=== PATIENT | female | born 1990 | race Caucasian/White ===

== ENCOUNTER 2017-12-07 22:22 | Observation (INO) ==
[2017-12-07 23:08] LABS: BASOPHILS % (AUTO) 0.4 % (0.2-1.0); EOSINOPHILS # (AUTO) 0.2 x10^3/uL (0.0-0.2); EOSINOPHILS % (AUTO) 2.5 % (0.9-2.9); HEMATOCRIT 39.1 % (36.0-47.0); HEMOGLOBIN 13.2 g/dL (12.0-16.0); LYMPHOCYTES # (AUTO) 2.4 X10^3/uL (1.3-2.9); LYMPHOCYTES % (AUTO) 29.1 % (21.0-51.0); MEAN CORPUSCULAR HEMOGLOBIN 29.2 pg (27.0-34.0); MEAN CORPUSCULAR HGB CONC 33.7 g/dL (33.0-35.0); MEAN CORPUSCULAR VOLUME 86.5 fL (80.0-100.0); MEAN PLATELET VOLUME 8.5 fL (7.4-11.0); MONOCYTES # (AUTO) 0.6 x10^3/uL (0.3-0.8); MONOCYTES % (AUTO) 6.8 % (0.0-13.0); NEUTROPHILS # (AUTO) 5.1 x10^3/uL (2.2-4.8); NEUTROPHILS % (AUTO) 61.2 % (42.0-75.0); PLATELET COUNT 286 X10^3/uL (150.0-450.0); RED BLOOD COUNT 4.52 X10^6/uL (3.5-5.4); RED CELL DISTRIBUTION WIDTH 12.7 % (11.6-16.5); WHITE BLOOD COUNT 8.4 X10^3/uL (3.6-10.0)
--- NOTE | 2017-12-07 23:10 | DR.GENAD ---
HPI - PCP Primary Care Physician: NFD - HPI Comment HPI Comment: WORSE TONIGHT. NO N/V/D OR CONSTIPATION. NO FEVER OR DYSURIA. - Complaint/Symptoms Chief Complaint Doctors Comments: RLQ ABDOMINAL PAIN TIMES 2 DAYS. Chief Complaint:: PT C/O RT LOWER QUAD PAIN FOR 2 DAYS - Nurses notes reviewed Nurses Notes Review: Yes - Source History Provided: Patient - Mode of Arrival Mode of Arrival: Ambulatory - Timing Onset of Chief Complaint: 12/05/17 Came on: Suddenly - Duration Duration: Constant Duration: Days - Severity Severity: Moderate PMH - PMH Past Medical History: No Past Surgical History: No - Family History History of Family Medical Conditions: Yes Family Medical History: Hypertension - Social History Alcohol Use: None Do you use any recreational Drugs:: No Lives With: Family Lives Where: Home - infectious screening In the last 2 months have you had wt loss of >10#?: NO Have you had fever, night sweats or hemotysis?: No Have you traveled outside the country in the last 6 months?: No Isolation: Standard ROS - Review of Systems Constitutional: No Symptoms Reported Eyes: No Symptoms Reported ENTM: No Symptoms Reported Respiratoy: No Symptoms Reported Cardiovascular: No Symptoms Reported Gastrointestinal/Abdominal: Abdominal Pain (RLQ ABDOMINAL PAIN.) Genitourinary: No Symptoms Reported Neurological: No Symptoms Reported Musculoskeletal: No Symptoms Reported Integumentary: No Symptoms Reported Hematologic/Lymphatic: No Symptoms Reported Endocrine: No Symptoms Reported All Other Systems: Reviewed and Negative PE - General Limitations: No Limitations General Appearance: Alert - Head Head Exam: Normal Inspection - Eyes Eye exam: Normal Appearance - ENT ENT Exam: Normal External Ear Exam External Ear Exam: Normal External Inspection TM/Canal Exam: Bilateral Normal Nose Exam: Normal Nose Exam Mouth Exam: Normal Inspection Throat Exam: Normal Inspection - Neck Neck Exam: Trachea Midline - Chest Chest Inspection: Symmetric Chest Wall Rise - Respiratory Respiratory Exam: Normal Lung Sounds Bilat Respiratory Exam: Bilateral Clear to Auscultation - Cardiovascular Cardiovascular Exam: Regular Rate, Normal Rhythm, Normal Heart Sounds - Abdominal Exam Abdominal Exam: Normal Bowel Sounds, Soft, Tenderness Abdominal Tenderness: RLQ, Moderate - Extremities Extremities Exam: Normal Inspection - Back Back Exam: Normal Inspection - Neurologic Neurological Exam: Alert, Oriented X3, CN II-XII Intact. negative: Motor Sensory Deficit - Psychiatric Psychiatric Exam: Normal Affect, Normal Mood - Skin Skin Exam: Normal Color - Vital Signs Vitals: Temperature 98.1 F Pulse Rate 92 Respiratory Rate 18 Blood Pressure 112/77 O2 Sat by Pulse Oximetry 100 MDM - Additional Information Additional Information Obtained From: Family - Differential Diagnosis Differential Diagnosis: RLQ ABDOMINAL PAIN, APPENDICITIS Course - Treatment Treatment: SEE ORDERS. - Consultation Consultation Comments: DISCUSS PATIENT WITH DR. SUNG. WILL TAKE TO SURGERY IN AM. PATIENT WILL BE ADMITTED TO DR. TRIPATHI SERVICE. - Education/Counseling Education/Counseling: Patient, Family, Education Educated On: Diagnosis ROR - Labs Reviewed Laboratory Results Reviewed?: Yes Result Diagrams: 12/07/17 22:56 12/08/17 07:12 - XRAY XRAY Interpreted by: Radiologist XRAY Findings: REPORT DISCUSS WITH PATIENT. - Labs Reviewed Laboratory: WBC 8.4 X10^3/uL (3.6-10.0) 12/07/17 22:56 RBC 4.52 X10^6/uL (3.5-5.4) 12/07/17 22:56 Hgb 13.2 g/dL (12.0-16.0) 12/07/17 22:56 Hct 39.1 % (36.0-47.0) 12/07/17 22:56 MCV 86.5 fL (80.0-100.0) 12/07/17 22:56 MCH 29.2 pg (27.0-34.0) 12/07/17 22:56 MCHC 33.7 g/dL (33.0-35.0) 12/07/17 22:56 RDW 12.7 % (11.6-16.5) 12/07/17 22:56 Plt Count 286 X10^3/uL (150.0-450.0) 12/07/17 22:56 MPV 8.5 fL (7.4-11.0) 12/07/17 22:56 Neut % (Auto) 61.2 % (42.0-75.0) 12/07/17 22:56 Lymph % (Auto) 29.1 % (21.0-51.0) 12/07/17 22:56 [place] % (Auto) 6.8 % (0.0-13.0) 12/07/17 22:56 Eos % (Auto) 2.5 % (0.9-2.9) 12/07/17 22:56 Baso % (Auto) 0.4 % (0.2-1.0) 12/07/17 22:56 Neut # (Auto) 5.1 x10^3/uL (2.2-4.8) H 12/07/17 22:56 Lymph # (Auto) 2.4 X10^3/uL (1.3-2.9) 12/07/17 22:56 [place] # (Auto) 0.6 x10^3/uL (0.3-0.8) 12/07/17 22:56 Eos # (Auto) 0.2 x10^3/uL (0.0-0.2) 12/07/17 22:56 Baso # (Auto) 0.0 X10^3/uL (0.0-0.1) 12/07/17 22:56 Absolute Nucleated RBC 0.0 /100WBC 12/07/17 22:56 Sodium 136 mmol/L (136-145) 12/07/17 22:56 Corrected Sodium TNP 12/07/17 22:56 Potassium 3.1 mmol/L (3.5-5.1) L 12/07/17 22:56 Chloride 101 mmol/L (98-107) 12/07/17 22:56 Carbon Dioxide 31.0 mmol/L (21-32) 12/07/17 22:56 BUN 5 mg/dL (7-18) L 12/07/17 22:56 Creatinine 0.69 mg/dL (0.55-1.02) 12/07/17 22:56 Est GFR (MDRD) Af Amer > 60 (>60) 12/07/17 22:56 Est GFR (MDRD) Non-Af > 60 (>60) 12/07/17 22:56 Glucose 78 mg/dL (65-99) 12/07/17 22:56 Calcium 8.6 mg/dL (8.5-10.1) 12/07/17 22:56 Corrected Calcium TNP 12/07/17 22:56 Total Bilirubin 0.20 mg/dL (0.2-1.0) 12/07/17 22:56 AST 10 Units/L (15-37) L 12/07/17 22:56 ALT 12 Units/L (12-78) 12/07/17 22:56 Alkaline Phosphatase 73 Units/L (46-116) 12/07/17 22:56 Total Protein 7.0 g/dL (6.4-8.2) 12/07/17 22:56 Albumin 3.4 g/dL (3.4-5.0) 12/07/17 22:56 Globulin 3.6 g/dL (2.5-4.5) 12/07/17 22:56 Albumin/Globulin Ratio 0.9 Ratio (1.1-2.1) L 12/07/17 22:56 HCG, Qual Negative <10 mIU/mL 12/07/17 22:56 Specimen Type Clean catch urine 12/07/17 22:55 Urine Color Pale yellow (YELLOW) 12/07/17 22:55 Urine Appearance Clear (CLEAR) 12/07/17 22:55 Urine pH 6.5 (5.0 - 8.0) 12/07/17 22:55 Ur Specific [place] 1.010 (1.000-1.030) 12/07/17 22:55 Urine Protein Negative (NEGATIVE) 12/07/17 22:55 Urine Glucose (UA) Negative (NEGATIVE) 12/07/17 22:55 Urine Ketones Negative (NEGATIVE) 12/07/17 22:55 Urine Occult Blood 1+ (NEGATIVE) 12/07/17 22:55 Urine Nitrite Negative (NEGATIVE) 12/07/17 22:55 Urine Bilirubin Negative (NEGATIVE) 12/07/17 22:55 Urine Urobilinogen Normal (NORMAL) 12/07/17 22:55 Ur Leukocyte Esterase Negative (NEGATIVE) 12/07/17 22:55 Urine RBC 0-2 /HPF (NONE SEEN) 12/07/17 22:55 Urine WBC None seen /HPF (NONE SEEN) 12/07/17 22:55 Ur Squamous Epith Cells Few /HPF (NEGATIVE) 12/07/17 22:55 Urine Bacteria Negative /HPF (NEGATIVE) 12/07/17 22:55 Ur Culture Indicated? No/not indicated 12/07/17 22:55 - Diagnosis Discharge Problem: Acute appendicitis Qualifiers: Acute appendicitis type: with localized peritonitis Qualified Code(s): K35.3 - Acute appendicitis with localized peritonitis - Discharge Plan Disposition: ADMITTED INPATIENT Condition: Stable
[2017-12-07 23:12] LABS: BILIRUBIN,URINE NEGATIVE (NEGATIVE); BLOOD/HEMOGLOBIN,URINE 1+ (NEGATIVE); GLUCOSE, URINE NEGATIVE (NEGATIVE); KETONES,URINE NEGATIVE (NEGATIVE); LEUKOCYTE ESTERASE ,URINE NEGATIVE (NEGATIVE); NITRITES,URINE NEGATIVE (NEGATIVE); PH,URINE 6.5 (5.0 - 8.0); PROTEIN,URINE NEGATIVE (NEGATIVE); UROBILINOGEN,URINE NORMAL (NORMAL)
[2017-12-07 23:15] LABS: SERUM PREGNANCY TEST, QUAL NEGATIVE <10 mIU/mL
[2017-12-07 23:19] LABS: ALANINE AMINOTRANSFERASE 12 Units/L (12-78); ALBUMIN 3.4 g/dL (3.4-5.0); ALKALINE PHOSPHATASE 73 Units/L (46-116); ASPARTATE AMINO TRANSFERASE 10 Units/L (15-37); BLOOD UREA NITROGEN 5 mg/dL (7-18); CALCIUM 8.6 mg/dL (8.5-10.1); CHLORIDE 101 mmol/L (98-107); CREATININE 0.69 mg/dL (0.55-1.02); SODIUM 136 mmol/L (136-145); eGFR NON BLACK RACES > 60 (>60)
[2017-12-07 23:25] LABS: APPEARANCE,URINE CLEAR (CLEAR); COLOR,URINE PALE YELLOW (YELLOW)
[2017-12-07 23:26] LABS: BACTERIA,URINE NEGATIVE /HPF (NEGATIVE); RBC,URINE 0-2 /HPF (NONE SEEN); SQUAMOUS EPITHELIAL CELL,UR FEW /HPF (NEGATIVE)
--- NOTE | 2017-12-08 00:19 | CT ---
CT abdomen pelvis without contrast Indication: Abdominal pain Findings: The cardiac chambers and lung bases are negative. The noncontrast appearance of liver gallb ladder pancreas spleen and bilateral kidneys are negative. The small bowel shows minimal fluid retent ion and luminal stasis nonspecific in appearance. A mild ileus related to enteritis is not excluded. The colon retains [id number] stool consistent with mild constipation. In the right lower quadrant in the retrocecal location the appendix is present and appears to be mild ly dilated is partially dislocated tip with there is. Appendiceal stranding. The lumen measurement in this location is approximately 11 mm. There is an intrauterine device present. The urinary bladder is nondistended. The skeleton is negati ve. Impression: 1 findings of acute appendicitis without abscess or perforation is located in a retroceca l position of the right lower quadrant. 2. IUD visualized. 3. Mild small bowel ileus with luminal stasis. Reported By:
[2017-12-08] MEDS ORDERED: ZOFRAN INJ 4 MG VIAL IVP PRN ×2 (01:26→09:37)
[2017-12-08] MEDS ORDERED: ANCEF 1 GRAM IV PREMIX* 1 G/50 ML BAG IV ONE ×2 (01:54→08:17)
[2017-12-08] MEDS ORDERED: NS 1000 ML 1,000 ML IV SCH (02:00)
[2017-12-08] MEDS: NS + KCL 20 MEQ/L 1,000 ML IV SCH ×2 (02:00→14:17)
[2017-12-08] MEDS: ANCEF VIAL 1 GRAM 1 G in NS 100 ML IV + SPIKE MINIBAG* 100 ML IV SCH ×4 (02:00→22:10)
[2017-12-08 02:11] VITALS: BMI 21.7
[2017-12-08] MEDS: MORPHINE SULFATE INJ 2 MG INJ IVP PRN ×2 (02:22→15:38)
[2017-12-08] MEDS ORDERED: NS 100 ML IV 100 ML IV ONE (05:23)
[2017-12-08] MEDS ORDERED: ANCEF VIAL 1 GRAM ONE (05:24)
[2017-12-08 07:25] LABS: MAGNESIUM 1.8 mg/dL (1.7-2.9)
[2017-12-08] MEDS ORDERED: LR 1000 ML IV 1,000 ML IV ONE ×2 (08:16→08:29)
[2017-12-08] MEDS ORDERED: MORPHINE SULFATE INJ 2 MG INJ ONE (08:20)
[2017-12-08] MEDS ORDERED: BACITRACIN VIAL ONE (08:23)
[2017-12-08] MEDS ORDERED: CITALOPRAM PO SCH (09:00)
[2017-12-08] MEDS ORDERED: NS IRRIGATION 3000 ML 3,000 ML IR ONE (09:31)
[2017-12-08] MEDS ORDERED: REGLAN INJ 10 MG VIAL IVP PRN (09:37)
[2017-12-08] MEDS ORDERED: DILAUDID INJ IVP PRN (09:37)
[2017-12-08] MEDS ORDERED: BENADRYL INJ 50 MG VIAL IVP PRN (09:37)
[2017-12-08] MEDS ORDERED: PHENERGAN INJ 25 MG IVP PRN (09:37)
[2017-12-08] MEDS ORDERED: PHENERGAN INJ 25 MG ONE (09:40)
[2017-12-08] MEDS: PHENERGAN INJ 25 MG IVP PRN ×2 (09:41→21:58)
--- NOTE | 2017-12-08 09:43 | OR.GENERIC ---
Post-Op Note Generic - Post-Op Note Operative Report: lap appendectomy was done .. findings : acute retro cecal appendecitis .. 2- small Rt ovarian cyst . EBL 10 cc.. pt did well , no complications ..
[2017-12-08] MEDS: D5 1/2 NS 1000 ML 1,000 ML IV SCH (10:49)
[2017-12-08] MEDS: LEVAQUIN PREMIX IV 500 MG 500 MG/100 ML BAG IV SCH (11:40)
[2017-12-08] MEDS: CELEXA PO SCH ×2 (11:40→15:38)
[2017-12-08] MEDS ORDERED: TORADOL 30 MG VIAL ONE (15:35)
[2017-12-08] MEDS ORDERED: ULTANE GAS IN ONE (15:35)
[2017-12-08] MEDS ORDERED: DIPRIVAN VIAL ONE (15:35)
[2017-12-08] MEDS ORDERED: NORCURON INJ 10 MG VIAL ONE (15:35)
[2017-12-08] MEDS ORDERED: ZOFRAN INJ 4 MG VIAL ONE (15:35)
[2017-12-08] MEDS ORDERED: ROBINUL ONE (15:35)
[2017-12-08] MEDS ORDERED: NEOSTIGMINE INJ ONE (15:35)
[2017-12-08] MEDS ORDERED: QUELICIN (OR ANECTINE) ONE (15:35)
[2017-12-08] MEDS ORDERED: VERSED ONE (15:35)
[2017-12-08] MEDS ORDERED: NORCO 5/325 MG TAB PO PRN (16:45)
--- NOTE | 2017-12-08 22:01 | DR.H&P ---
H&P - History & Physical for Day of: H&P Date: 12/08/17 - Chief Complaint Chief Complaint: ABDOMINAL PAIN - History of Present Illness History of Present Illness: IS A 26 YEAR OLD WHITE FEMALE WHO PRESENTED TO THE EMERGENCY ROOM WITH COMPLAINTS OF RIGHT LOWER QUADRANT PAIN FOR THE PAST TWO DAYS. SHE DENIES NAUSEA, VOMITING, OR CONSTIPATION. SHE ALSO DENIES FEVER OR DYSURIA. ON ARRIVAL, VITALS WERE 98.1-92-18-100%-112/77. LABS WERE OBTAINED. ABNORMAL LAB VALUES INCLUDE THE FOLLOWING: POTASSIUM 3.1, BUN 5, AST 10. URINALYSIS IS UNREMARKABLE. ABDOMEN/PELVIS CT OBTAINED AND REVEALED: findings of acute appendicitis without abscess or perforation is located in a retrocecal position of the right lower quadrant. IUD visualized. Mild small bowel ileus with luminal stasis. WAS CONSULTED AND PLANS FOR LAPROSCOPIC APPENDECTOMY THIS MORNING. WE ARE IN AGREEMENT WITH PLAN AND PATIENT IS MEDICALLY CLEAR FOR SURGERY. SHE WAS ADMITTED TO THE HOSPITAL AND STARTED ON NS+20MEQ KCL AT 100ML/HR, ANCEF 1GM IV Q8H, AND LEVAQUIN 500MG IV DAILY. WE WILL FOLLOW UP WITH AM LABS AND CONTINUE TO MONITOR PATIENT AFTER SURGERY. - Past Medical History Past Medical History: Depression - Past Surgical History Surgical History: No History - Family History Family Medical History: Hypertension - Social History Alcohol Use: None Drug Use: None - Medications Home Medications: Sulfa (Sulfonamide Antibiotics) [SULFA] Allergy (Verified 12/07/17 22:27) CONTINUE taking the following medications citalopram [Celexa] 1 tab PO DAILY 12/08/17 [History] - Review of Systems Constitutional: No Symptoms Reported Eyes: No Symptoms Reported ENT: No Symptoms Reported Respiratory: No Symptoms Reported Cardiovascular: No Symptoms Reported Gastrointestinal: Abdominal Pain Genitourinary: No Symptoms Reported Musculoskeletal: No Symptoms Reported Skin: No Symptoms Reported Neurological: No Symptoms Reported - Physical Exam Vital Signs: Temperature 98.0 F Pulse Rate [Left Brachial] 72 Pulse Rate 74 Respiratory Rate 18 Blood Pressure [Left Arm] 101/60 Blood Pressure 118/68 O2 Sat by Pulse Oximetry 98 Oriented: Normal Eyes: Normal Ear: Normal Nose: Normal Throat: Normal Respiratory: Clear Throughout Cardiovascular: Normal : Normal Auscultation: Bowel Sounds: Normal Palpation: Normal Tenderness: RLQ Skin: Normal Musculoskeletal: Normal Psychiatric: Normal Mood Description: Calm Affect: Normal Speech Pattern: Clear - Assessment/Plan (1) Acute appendicitis Qualifiers: Acute appendicitis type: with localized peritonitis Qualified Code(s): K35.3 - Acute appendicitis with localized peritonitis Status: Acute Plan: LAPROSCOPIC APPENDECTOMY TODAY, IV ANTIBIOTICS, CONTINUE TO MONITOR - Allergies Allergies/Adverse Reactions: Allergies Allergy/AdvReac Type Severity Reaction Status Date / Time Sulfa (Sulfonamide Allergy Verified 12/07/17 22:27 Antibiotics) [SULFA]
[2017-12-09] MEDS: D5 1/2 NS 1000 ML 1,000 ML IV SCH ×3 (00:40→09:32)
[2017-12-09] MEDS: NS + KCL 20 MEQ/L 1,000 ML IV SCH (04:22)
[2017-12-09] MEDS: ANCEF VIAL 1 GRAM 1 G in NS 100 ML IV + SPIKE MINIBAG* 100 ML IV SCH ×2 (05:23→13:09)
[2017-12-09 06:37] LABS: BASOPHILS % (AUTO) 0.4 % (0.2-1.0); EOSINOPHILS # (AUTO) 0.2 x10^3/uL (0.0-0.2); EOSINOPHILS % (AUTO) 2.8 % (0.9-2.9); HEMATOCRIT 35.3 % (36.0-47.0); HEMOGLOBIN 12.2 g/dL (12.0-16.0); LYMPHOCYTES # (AUTO) 2.2 X10^3/uL (1.3-2.9); LYMPHOCYTES % (AUTO) 32.3 % (21.0-51.0); MEAN CORPUSCULAR HEMOGLOBIN 29.7 pg (27.0-34.0); MEAN CORPUSCULAR HGB CONC 34.7 g/dL (33.0-35.0); MEAN CORPUSCULAR VOLUME 85.8 fL (80.0-100.0); MEAN PLATELET VOLUME 8.9 fL (7.4-11.0); MONOCYTES # (AUTO) 0.5 x10^3/uL (0.3-0.8); MONOCYTES % (AUTO) 6.8 % (0.0-13.0); NEUTROPHILS # (AUTO) 3.9 x10^3/uL (2.2-4.8); NEUTROPHILS % (AUTO) 57.7 % (42.0-75.0); PLATELET COUNT 238 X10^3/uL (150.0-450.0); RED BLOOD COUNT 4.11 X10^6/uL (3.5-5.4); RED CELL DISTRIBUTION WIDTH 12.6 % (11.6-16.5); WHITE BLOOD COUNT 6.8 X10^3/uL (3.6-10.0)
[2017-12-09 07:05] LABS: ALANINE AMINOTRANSFERASE 11 Units/L (12-78); ALBUMIN 2.7 g/dL (3.4-5.0); ALKALINE PHOSPHATASE 48 Units/L (46-116); ASPARTATE AMINO TRANSFERASE 11 Units/L (15-37); BLOOD UREA NITROGEN 4 mg/dL (7-18); CALCIUM 7.9 mg/dL (8.5-10.1); CARBON DIOXIDE 27.7 mmol/L (21-32); CHLORIDE 106 mmol/L (98-107); COR CA(FOR HYPOALB) 8.9 mg/dL (8.5-10.1); CREATININE 0.59 mg/dL (0.55-1.02); SODIUM 140 mmol/L (136-145); TOTAL PROTEIN 5.7 g/dL (6.4-8.2); eGFR NON BLACK RACES > 60 (>60)
[2017-12-09] MEDS: LEVAQUIN PREMIX IV 500 MG 500 MG/100 ML BAG IV SCH (08:52)
[2017-12-09] MEDS: CELEXA PO SCH (08:52)
--- NOTE | 2017-12-09 09:35 | DR.PROGNOT ---
Hospital Progress Notes - Progress Note for Day of: Progress Note Date: 12/09/17 - Chief Complaint Chief Complaint: PO lap Appendectomy day 1 . doin well , c/o incisional pain , no nausea or vomiting ,. afebrile . - History of Present Illness History of Present Illness: . - Past Medical Family Social History Past Med/Fam/Surg Hx: No changes since H&P Allergies: Allergies Sulfa (Sulfonamide Antibiotics) [SULFA] Allergy (Verified 12/07/17 22:27) - Review Of Systems ROS: No change since H&P - Vital Signs Vital Signs: Temperature 98.5 F Pulse Rate [Left Brachial] 69 Pulse Rate 74 Respiratory Rate 20 Blood Pressure [Left Arm] 101/66 Blood Pressure 118/68 O2 Sat by Pulse Oximetry 97 - Physical Exam Oriented: Normal Eyes: Normal Ear: Normal Nose: Normal Throat: Normal Cardiovascular: Normal : Normal GI:Auscultation: Normal GI:Palpation: Normal GI: Tenderness: Diffuse, RLQ, LLQ (generalized tenderness , BS +) Skin: Normal Musculoskeletal: Normal Psychiatric: Normal Mood Description: Calm Affect: Normal Speech Pattern: Clear - Laboratory and Diagnostics Result Diagrams: 12/09/17 05:25 12/09/17 05:25 Labs: Laboratory WBC 6.8 X10^3/uL (3.6-10.0) 12/09/17 05:25 RBC 4.11 X10^6/uL (3.5-5.4) 12/09/17 05:25 Hgb 12.2 g/dL (12.0-16.0) 12/09/17 05:25 Hct 35.3 % (36.0-47.0) L 12/09/17 05:25 MCV 85.8 fL (80.0-100.0) 12/09/17 05:25 MCH 29.7 pg (27.0-34.0) 12/09/17 05:25 MCHC 34.7 g/dL (33.0-35.0) 12/09/17 05:25 RDW 12.6 % (11.6-16.5) 12/09/17 05:25 Plt Count 238 X10^3/uL (150.0-450.0) 12/09/17 05:25 MPV 8.9 fL (7.4-11.0) 12/09/17 05:25 Neut % (Auto) 57.7 % (42.0-75.0) 12/09/17 05:25 Lymph % (Auto) 32.3 % (21.0-51.0) 12/09/17 05:25 [place] % (Auto) 6.8 % (0.0-13.0) 12/09/17 05:25 Eos % (Auto) 2.8 % (0.9-2.9) 12/09/17 05:25 Baso % (Auto) 0.4 % (0.2-1.0) 12/09/17 05:25 Neut # (Auto) 3.9 x10^3/uL (2.2-4.8) 12/09/17 05:25 Lymph # (Auto) 2.2 X10^3/uL (1.3-2.9) 12/09/17 05:25 [place] # (Auto) 0.5 x10^3/uL (0.3-0.8) 12/09/17 05:25 Eos # (Auto) 0.2 x10^3/uL (0.0-0.2) 12/09/17 05:25 Baso # (Auto) 0.0 X10^3/uL (0.0-0.1) 12/09/17 05:25 Absolute Nucleated RBC 0.0 /100WBC 12/09/17 05:25 Sodium 140 mmol/L (136-145) 12/09/17 05:25 Corrected Sodium TNP 12/09/17 05:25 Potassium 3.5 mmol/L (3.5-5.1) 12/09/17 05:25 Chloride 106 mmol/L (98-107) 12/09/17 05:25 Carbon Dioxide 27.7 mmol/L (21-32) 12/09/17 05:25 BUN 4 mg/dL (7-18) L 12/09/17 05:25 Creatinine 0.59 mg/dL (0.55-1.02) 12/09/17 05:25 Est GFR (MDRD) Af Amer > 60 (>60) 12/09/17 05:25 Est GFR (MDRD) Non-Af > 60 (>60) 12/09/17 05:25 Glucose 93 mg/dL (65-99) 12/09/17 05:25 Calcium 7.9 mg/dL (8.5-10.1) L 12/09/17 05:25 Corrected Calcium 8.9 mg/dL (8.5-10.1) 12/09/17 05:25 Magnesium 1.8 mg/dL (1.7-2.9) 12/08/17 07:12 Total Bilirubin 0.30 mg/dL (0.2-1.0) 12/09/17 05:25 AST 11 Units/L (15-37) L 12/09/17 05:25 ALT 11 Units/L (12-78) L 12/09/17 05:25 Alkaline Phosphatase 48 Units/L (46-116) 12/09/17 05:25 Total Protein 5.7 g/dL (6.4-8.2) L 12/09/17 05:25 Albumin 2.7 g/dL (3.4-5.0) L 12/09/17 05:25 Globulin 3.0 g/dL (2.5-4.5) 12/09/17 05:25 Albumin/Globulin Ratio 0.9 Ratio (1.1-2.1) L 12/09/17 05:25 HCG, Qual Negative <10 mIU/mL 12/07/17 22:56 Specimen Type Clean catch urine 12/07/17 22:55 Urine Color Pale yellow (YELLOW) 12/07/17 22:55 Urine Appearance Clear (CLEAR) 12/07/17 22:55 Urine pH 6.5 (5.0 - 8.0) 12/07/17 22:55 Ur Specific [place] 1.010 (1.000-1.030) 12/07/17 22:55 Urine Protein Negative (NEGATIVE) 12/07/17 22:55 Urine Glucose (UA) Negative (NEGATIVE) 12/07/17 22:55 Urine Ketones Negative (NEGATIVE) 12/07/17 22:55 Urine Occult Blood 1+ (NEGATIVE) 12/07/17 22:55 Urine Nitrite Negative (NEGATIVE) 12/07/17 22:55 Urine Bilirubin Negative (NEGATIVE) 12/07/17 22:55 Urine Urobilinogen Normal (NORMAL) 12/07/17 22:55 Ur Leukocyte Esterase Negative (NEGATIVE) 12/07/17 22:55 Urine RBC 0-2 /HPF (NONE SEEN) 12/07/17 22:55 Urine WBC None seen /HPF (NONE SEEN) 12/07/17 22:55 Ur Squamous Epith Cells Few /HPF (NEGATIVE) 12/07/17 22:55 Urine Bacteria Negative /HPF (NEGATIVE) 12/07/17 22:55 Ur Culture Indicated? No/not indicated 12/07/17 22:55 Tissue Pathology To follow 12/08/17 09:08 - Assessment and Plan 1: acute retrocecal appendecitis . s/p lap parth . will D/C on Cipri 500 BID and [place] 5 PRN . to follow in one week . - Problem Patient Problems: Patient Problems Acute appendicitis (Acute) K35.80
[2017-12-09 12:54] VITALS: BP 105/73
[2017-12-09] MEDS ORDERED: ZOFRAN TAB 4 MG PO ONE (14:50)
--- NOTE | 2018-01-03 14:02 | DR.CARTERD ---
- Discharge Summary for: Discharge Summary for Date of:: 12/09/17 - Admission Date Date of Admission: 12/08/17 - Admission Diagnoses Admission Diagnosis: (1) Acute appendicitis (2) RLQ abdominal pain - Discharge Date Discharge Date: 12/09/17 - Discharge Diagnoses Discharge Diagnosis: (1) Acute appendicitis (2) RLQ abdominal pain - Hospital Course Hospital Course: Ms. Vigil presented to the emergency room with reports of right lower quadrant abdominal pain. Patient reported pain started two days prior. Patient noted with rebound tenderness on palpation of right lower quadrant. Abdomen and pelvis CT reported acute appendicitis without abscess or perforation was located in a retrocecal position of the right lower quadrant. Patient admitted to the hospital and taken to surgery for a laparoscopic appendectomy under the care of Dr. Pleitez. Patient tolerated procedure well. We were consulted for medical management. Medical History: Uterine Cyst, Anxiety. Medications: Phenergan 12.5mg IV Q6hr PRN, Ancef 1gm IV Q8hr, Morphine 2mg IV Q4hr PRN, Zofran 4mg IV Q6hr PRN, NS +20meq KCL @100ml/hr, Celexa 10mg po daily, Levaquin 500mg IV daily, [place] 5/325mg po Q4hr PRN, Zofran 4mg IV x1. Abnormal Labs: Potassium 3.1, BUN 5, AST 10, A/G Ratio 0.9. Abdomen/Pelvis CT: Findings of acute appendicitis without abscess or perforation is located in a retrocecal position of the right lower quadrant. IUD visualized. Mild small bowel ileus with luminal stasis. On day two, patient was doing well. Patient reported mild pain at incision site. Surgical site was clean and dry with no drainage noted. Dr. Pleitez released patient for discharge. Vital signs stable. Labs wnl. We planned for discharge. Instructions for medications and follow up were discussed with patient and family, both voiced understanding. Patient discharged home in stable condition with family. - Discharge Medications Discharge Medications: Home Medication List citalopram [Celexa] 1 tab PO DAILY 12/08/17 [History] ciprofloxacin HCl [Cipro] 500 mg PO BID #10 tab 12/09/17 [Rx] hydrocodone-acetaminophen [[place]] 1 tab PO Q4-6H PRN #15 tab 06/28/18 [Rx] Prescriptions: ciprofloxacin HCl [Cipro] SHANE CARY hydrocodone-acetaminophen [Pullman] SHANE CARY - Discharge Disposition Discharge Disposition: Patient is to follow up with Dr. Pleitez in one week.
== END 2017-12-09 14:50 | disposition home or self-care (01) ==
LOC: MED/SURG 22:24 → ER 22:24 → MED/SURG 12-08 01:46
PROVIDERS: ADMIT Internal Medicine; ATTEND Internal Medicine
PROC: APPYLAP (ICD-10-PCS; 2017-12-08 10:45)
DX: R10.31 Right lower quadrant pain; N83.291 Other ovarian cyst, right side; K35.89 Other acute appendicitis
CPT/HCPCS: 36415; 74176; 80053; 81001; 83735; 84132; 84703; 85025; 96365; 99282; 99284; A4216; A4222; G0378; J0330; J0690; J1885; J1956; J2250; J2270; J2405; J2550; J2704; J2710; J3490; J7050; J7120; S0181; S5010